=== PATIENT | male | born 1980 | race Hispanic/Latino ===

== ENCOUNTER 2024-02-24 16:24 | Emergency (ER) | payer OTHER, SELFPAY ==
[2024-02-24 16:31] VITALS: BP 126/77
[2024-02-24 16:38] VITALS: BMI 34.3
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
[2024-02-24] MEDS: MOTRIN 600 MG PO (16:53)
[2024-02-24 20:19] VITALS: BP 149/73
== END 2024-02-24 20:22 ==
LOC: EMR 16:24
PROVIDERS: EMERGENCY PHYSICIAN Student in an Organized Health Care Education/Training Program
DX: M25.562 Pain in left knee (principal); V89.2XXA Person injured in unspecified motor-vehicle accident, traffic, initial encounter; Y92.410 Unspecified street and highway as the place of occurrence of the external cause
CPT/HCPCS: 99283; 71111; 72050; 72110; 73030; 73552; 73564